=== PATIENT | female | born 1935 | race Caucasian/White ===

== ENCOUNTER 2018-03-01 15:28 | Emergency (ER) | payer OTHER ==
[~2018-03-01] VITALS: Ht 165.1 cm; Wt 59.0 kg
--- NOTE | 2018-03-01 15:40 | NUR ---
There are no ER beds available at this time. Pt was triaged and placed back in ER waiting room.
[2018-03-01] MEDS ORDERED: SIMV10TA6 PO (15:47)
[2018-03-01] MEDS ORDERED: BECL8.7A6 IH (15:47)
[2018-03-01] MEDS ORDERED: HYDR12.5 PO (15:47)
[2018-03-01] MEDS ORDERED: DIAZ5TAB4 PO (15:47)
[2018-03-01] MEDS ORDERED: TRAM50TA2 PO (15:47)
[2018-03-01] MEDS ORDERED: LOSA50TA21 PO (15:47)
[2018-03-01] MEDS ORDERED: DICL75TA5 PO (15:47)
[2018-03-01 16:08] LABS: BASOPHILS % (AUTO) 0.8 % (0.0-2.0); EOSINOPHILS # (AUTO) 0.2 K/uL (0.0-0.7); EOSINOPHILS % (AUTO) 2.8 % (0.0-7.0); HEMATOCRIT 45.6 % (31.2-41.9); HEMOGLOBIN 15.6 g/dL (10.9-14.3); LYMPHOCYTES # (AUTO) 1.7 K/uL (20.0-40.0); LYMPHOCYTES % (AUTO) 28.7 % (20.5-51.5); MEAN CORPUSCULAR HEMOGLOBIN 30.3 uug (24.7-32.8); MEAN CORPUSCULAR HGB CONC 34 g/dL (32.3-35.6); MONOCYTES # (AUTO) 0.5 K/uL (2.0-10.0); NEUTROPHILS # (AUTO) 3.5 K/uL (1.8-8.9); NEUTROPHILS % (AUTO) 59.7 % (38.5-71.5); PLATELET COUNT (AUTO) 226 K/uL (179-408); RED BLOOD CELL COUNT(AUTO) 5.13 MIL/uL (3.63-4.92); WHITE BLOOD COUNT (AUTO) 5.9 K/uL (3.8-11.8)
--- NOTE | 2018-03-01 16:13 | NUR ---
Pt out of Er fot CT.
[2018-03-01 16:21] LABS: CARBON DIOXIDE 35 mmol/L (21-32); CHLORIDE 98 mmol/L (98-107); CREATININE 0.9 mg/dL (0.6-1.3); GLUCOSE 99 mg/dL (74-106); POTASSIUM 4.5 mmol/L (3.5-5.1); UREA NITROGEN, BLOOD 17 mg/dL (7-18)
[2018-03-01 16:27] LABS: ALANINE AMINOTRANSFERASE 37 U/L (14-59); ALKALINE PHOSPHATASE 82 U/L (50-136); ASPARTATE AMINOTRANSFERASE 24 U/L (15-37); BILIRUBIN,TOTAL 0.9 mg/dL (0.2-1.0); TOTAL PROTEIN, SERUM 7.6 g/dL (6.4-8.2)
--- NOTE | 2018-03-01 18:42 | NUR ---
Patient discharged to home in stable conditon. Written and verbal after care instructions given. Patient verbalizes understanding of instructions.
[2018-03-01 18:43] VITALS: BP 155/78
== END 2018-03-01 18:45 | disposition home or self-care (01) ==
LOC: ER 15:30
DX: I10 Essential (primary) hypertension (principal); J44.9 Chronic obstructive pulmonary disease, unspecified
CPT/HCPCS: 36415; 70450; 85025; A4663

== ENCOUNTER 2021-11-05 15:41 | Inpatient (IN) | payer MEDICARE, OTHER ==
[~2021-11-05] VITALS: Ht 165.1 cm; Wt 55.6 kg
[~2021-11-05 15:41] MED LIST: BECL8.7A6 IH; DIAZ5TAB4 PO; DICL75TA5 PO; HYDR12.5 PO; LOSA50TA39 PO; SIMV10TA98 PO; TRAM50TA2 PO
[2021-11-05 16:46] LABS: HEMATOCRIT 46.7 % (31.2-41.9); MEAN CORPUSCULAR HEMOGLOBIN 30.4 uug (24.7-32.8); MEAN CORPUSCULAR VOLUME 89.6 fL (75.5-95.3); PLATELET COUNT (AUTO) 253 K/uL (179-408)
[2021-11-05 16:54] LABS: CARBON DIOXIDE 23 mmol/L (21-32); CHLORIDE 100 mmol/L (98-107); CREATININE 2.2 mg/dL (0.6-1.3); GLUCOSE 124 mg/dL (74-106); UREA NITROGEN, BLOOD 73 mg/dL (7-18)
[2021-11-05] MEDS ORDERED: SPIR50TA5 PO (17:04)
[2021-11-05] MEDS ORDERED: ROSU10TA2 PO (17:04)
[2021-11-05] MEDS ORDERED: HYDR-4209 PO (17:04)
[2021-11-05] MEDS ORDERED: POTA10CA43 PO (17:04)
[2021-11-05] MEDS ORDERED: FURO20TA4 PO (17:04)
[2021-11-05] MEDS ORDERED: DILT-32 PO (17:04)
[2021-11-05 17:08] LABS: POTASSIUM 6.3 mmol/L (3.5-5.1)
[2021-11-05 17:20] LABS: ALANINE AMINOTRANSFERASE 339 U/L (14-59); ALKALINE PHOSPHATASE 77 U/L (50-136); ASPARTATE AMINOTRANSFERASE 316 U/L (15-37); BILIRUBIN,DIRECT 0.2 mg/dL (0.0-0.2); BILIRUBIN,TOTAL 1.2 mg/dL (0.2-1.0); TOTAL PROTEIN, SERUM 8.8 g/dL (6.4-8.2)
[2021-11-05] MEDS ORDERED: SODIUM POLYSTYRENE SULFONATE 15 G/60 ML LIQUID UDC PO ONE (17:45)
[2021-11-05] MEDS ORDERED: SODIUM POLYSTYRENE SULFONATE 15 G/60 ML LIQUID UDC ONE (17:55)
--- NOTE | 2021-11-05 17:58 | NUR ---
pt unable to follow direction to swallow pankaj ga md notified.
[2021-11-05 17:59] LABS: *BILIRUBIN,URIN NEGATIVE (NEGATIVE); *BLOOD, URINE 2+ (NEGATIVE); *CLARITY,URINE CLEAR (CLEAR); *COLOR,URINE YELLOW (YELLOW); *KETONES,URINE NEGATIVE (NEGATIVE); *UROBILINOGEN,URINE 0.2 E.U./dl (NORMAL); LEUKOCYTE ESTERASE ,URINE NEGATIVE (NEGATIVE); NITRITE, URINE NEGATIVE (NEGATIVE); PH,URINE 6.5 (5.0-8.0); UGLUCOSE NEGATIVE (NEGATIVE)
[2021-11-05] MEDS ORDERED: CALCIUM CHLORIDE 1 GM/10 ML DISP.SYRIN IVP ONE ×2 (18:00→18:38)
[2021-11-05] MEDS ORDERED: IV NORMAL SALINE 1000 ML BAG IV ONE (18:00)
[2021-11-05] MEDS ORDERED: DEXTROSE 50% 50 ML DISP.SYRIN IV ONE (18:00)
[2021-11-05] MEDS ORDERED: INSULIN REGULAR, HUMAN 300 UNIT/3 ML VIAL IV ONE (18:00)
[2021-11-05] MEDS ORDERED: MAGNESIUM HYDROXIDE 30 ML LIQUID UDC PO PRN (18:15)
[2021-11-05] MEDS ORDERED: ACETAMINOPHEN 325 MG TABLET PO PRN (18:15)
[2021-11-05] MEDS ORDERED: REMEDY ESSENTIAL ZINC PASTE 113 GM TP PRN (18:15)
[2021-11-05] MEDS ORDERED: ONDANSETRON 4 MG/2 ML VIAL IV PRN (18:15)
[2021-11-05] MEDS ORDERED: INSULIN REGULAR, HUMAN 300 UNIT/3 ML VIAL ONE (18:36)
[2021-11-05] MEDS ORDERED: DEXTROSE 50% 50 ML DISP.SYRIN ONE (18:36)
[2021-11-05 19:12] LABS: BACTERIA,URINE FEW /HPF (NONE SEEN); SQUAMOUS EPITHELIAL CELL,UR FEW /HPF (NONE SEEN); WBC,URINE 0-3 /HPF (0-3)
--- NOTE | 2021-11-05 20:03 | NUR ---
pt a/o able to speak in complete sentences. denies pain.
--- NOTE | 2021-11-05 21:05 | NUR ---
spoke with yard warehouse worker, will call back regarding bed assignment
[2021-11-05] MEDS: ATORVASTATIN 20 MG TABLET PO SCH (21:13)
[2021-11-05] MEDS ORDERED: ATORVASTATIN 40 MG TABLET ONE (21:20)
--- NOTE | 2021-11-05 23:10 | NUR ---
Report given to Irma WRIGHT.
--- NOTE | 2021-11-05 23:45 | NUR ---
[facility] WR[facility] in room to accept pt.
[2021-11-06] MEDS: IV NS 1000 ML 1,000 ML IV PRN ×2 (00:37→14:14)
[2021-11-06 04:00] VITALS: BP 150/68
--- NOTE | 2021-11-06 06:01 | NUR ---
Pt admitted to Tele, SR. Denies pain or SOB. Pt is alert but very forgetful at times. IV site intact. [place] draining to gravity. Will endorse to day shift.
[2021-11-06 06:55] LABS: HEMATOCRIT 45.4 % (31.2-41.9); MEAN CORPUSCULAR HEMOGLOBIN 29.7 uug (24.7-32.8); MEAN CORPUSCULAR VOLUME 89.4 fL (75.5-95.3); PLATELET COUNT (AUTO) 226 K/uL (179-408)
[2021-11-06 07:27] LABS: CARBON DIOXIDE 27 mmol/L (21-32); CHLORIDE 105 mmol/L (98-107); CREATINE KINASE, TOTAL 3714 U/L (26-192); CREATININE 1.6 mg/dL (0.6-1.3); GLUCOSE 94 mg/dL (74-106); MAGNESIUM 2.5 mg/dL (1.8-2.4); PHOSPHOROUS 4.1 mg/dL (2.5-4.9); POTASSIUM 4.6 mmol/L (3.5-5.1); UREA NITROGEN, BLOOD 63 mg/dL (7-18)
[2021-11-06] MEDS: DILTIAZEM HCL CD 120 MG CAP.SR.24H PO SCH ×2 (08:57→16:54)
[2021-11-06] MEDS ORDERED: Medication Not On Formulary EA (Rosuvastatin Calcium (Crestor) 10 MG) PO SCH (09:00)
--- NOTE | 2021-11-06 09:30 | NUR ---
awake alert and oriented but forgetful, able to follow commands and able to take po med, kept npo as ordered, safety measures maintained
[2021-11-06 11:00] VITALS: BP 157/77
--- NOTE | 2021-11-06 11:00 | NUR ---
informed [address] [employer]IC of BP elevation- saw pt- more alert, cardiac soft diet ordered
[2021-11-06 15:15] VITALS: BP 117/62
--- NOTE | 2021-11-06 17:00 | NUR ---
daughter here and pt able to carry conversation, ate food brought from home
--- NOTE | 2021-11-06 18:43 | NUR ---
resting in bed, no distress noted, call light within rech
--- NOTE | 2021-11-06 20:13 | NUR ---
Patient in bed awake alert and forgetful .On RA. No s/s of distress noted. Iv patent and intact on Right AC with IVF running well.[place] catheter draining well with clear urine output.No hematuria. Safety measures in place.Call light with in reach. Will continue to monitor.
[2021-11-06 20:15] VITALS: BP 113/51
[2021-11-06] MEDS: ATORVASTATIN 20 MG TABLET PO SCH (20:37)
[2021-11-07] MEDS: IV NS 1000 ML 1,000 ML IV PRN ×2 (01:40→14:09)
[2021-11-07 04:18] VITALS: BP 113/61
[2021-11-07 07:12] LABS: HEMATOCRIT 38.5 % (31.2-41.9); MEAN CORPUSCULAR HEMOGLOBIN 29.7 uug (24.7-32.8); MEAN CORPUSCULAR VOLUME 89.7 fL (75.5-95.3); PLATELET COUNT (AUTO) 187 K/uL (179-408)
[2021-11-07 07:40] LABS: CREATININE 1.1 mg/dL (0.6-1.3); POTASSIUM 4.4 mmol/L (3.5-5.1)
[2021-11-07] MEDS: DILTIAZEM HCL CD 120 MG CAP.SR.24H PO SCH ×2 (08:15→16:56)
[2021-11-07 12:00] VITALS: BP 122/59
--- NOTE | 2021-11-07 14:04 | NUR ---
fc removed as ordered, tolerated well. output 700cc. will continue to monitor.
[2021-11-07 16:00] VITALS: BP 99/58
--- NOTE | 2021-11-07 18:45 | NUR ---
PATIENT REMAINED STABLE DURING THE SHIFT. DENIES PAIN/DISCOMFORT. VOIDED FREELY AFTER FC REMOVAL, CONTINENT AND WALKS WITH A WALKER WITH STANDBY ASSIST. SAFETY MEASURES MAINTAINED. KEPT CALL LIGHT WITHIN REACH. ALL NEEDS ATTENDED, DUE MEDS GIVEN. WILL ENDORSE TO THE NEXT SHIFT FOR CONTINUITY OF CARE.
--- NOTE | 2021-11-07 18:56 | NUR ---
PATIENT WAS NOTED WITH ABRASION TO THE LEFT ELBOW. PER DAUGHTER AT BEDSIDE, PATIENT ALREADY HAS IT PRIOR TO ADMISSION. WILL ENDORSE.
--- NOTE | 2021-11-07 19:25 | NUR ---
Received pt resting in bed comfortably. On room air saturating at 95%. No signs of acute distress. IV in R AC running NS 90mls/hr, tolerating. Denies any pain at this moment. L Elbow abrasion noted, picture taken. Call lights within reach/ Safety measures initiated.
[2021-11-07] MEDS: ATORVASTATIN 20 MG TABLET PO SCH (20:00)
[2021-11-07 20:56] VITALS: BP 111/53
[2021-11-08] MEDS: IV NS 1000 ML 1,000 ML IV PRN ×2 (02:41→15:53)
[2021-11-08 04:59] VITALS: BP 147/67
[2021-11-08 06:25] LABS: HEMATOCRIT 36.4 % (31.2-41.9); MEAN CORPUSCULAR HEMOGLOBIN 29.7 uug (24.7-32.8); MEAN CORPUSCULAR VOLUME 89.1 fL (75.5-95.3); PLATELET COUNT (AUTO) 172 K/uL (179-408)
[2021-11-08 06:45] LABS: BILIRUBIN,DIRECT 0.2 mg/dL (0.0-0.2); TOTAL PROTEIN, SERUM 5.6 g/dL (6.4-8.2)
--- NOTE | 2021-11-08 06:57 | NUR ---
Pt slept through out the night. Alert and oriented to name, time, place and event. On room air saturating at *. IV in R AC dislodged. IV in L hand running NS at 90 mls/hr, tolerating. Able to walk to bathroom with assistance. Denies pain or discomfort. Call lights within reach. Safety measures maintained. Will endorse to am shift.
[2021-11-08 07:03] LABS: CREATININE 0.9 mg/dL (0.6-1.3); POTASSIUM 3.7 mmol/L (3.5-5.1)
--- NOTE | 2021-11-08 07:30 | NUR ---
Alert, oriented x 3, able to verbalized needs appropriately. IVF infusing. Bed alarm on
--- NOTE | 2021-11-08 09:04 | NUR ---
PT eval done, ambulated outside of room with FWW.
[2021-11-08] MEDS: DILTIAZEM HCL CD 120 MG CAP.SR.24H PO SCH ×2 (09:32→17:36)
[2021-11-08 11:03] VITALS: BP 122/59
--- NOTE | 2021-11-08 14:38 | NUR ---
Clinical Social Work Note SW met with patient to discuss discharge plan. Patient is a 86 year old female who is alert and oriented x3. Patient presents with a withdrawn mood and congruent affect. SW asked patient about her plans for at home support when she is discharged. Patient stated that she wants to go home and her daughter lives close and will help monitor her. Patient asked SW to speak with daughter for details. SW spoke with patient's daughter, Nasim Toro [phone], to discuss patient's support at home upon discharge. Ms. Toro, patient is "very stubborn" and wants to return home. SW discussed with Ms. Toro regarding setting patient up with home health and she agreed. Ms. Toro stated that she is currently working on getting patient a caregiver, but she is not sure if patient will agree with it. Ms. Toro inquired about DME and SW e-mailed her DME companies. Plan: SW will continue to follow up with patient and Ms. Toro as needed.
[2021-11-08 15:17] VITALS: BP 104/57
[2021-11-08] MEDS: FUROSEMIDE 20 MG TABLET PO SCH (17:36)
[2021-11-08] MEDS: ENSURE ENLIVE (VAN) 240 ML LIQUID PO SCH (17:36)
[2021-11-08] MEDS: DOCUSATE SODIUM 100 MG CAPSULE PO SCH (17:36)
--- NOTE | 2021-11-08 18:14 | NUR ---
Daughter at bedside, explained DC plan/arrangements. With BLE edema, Lasix po given. Constipated, Colace po given. Call light with in reach, instructed to call. Bed alarm on
[2021-11-08 20:18] VITALS: BP 96/51
[2021-11-08] MEDS: ATORVASTATIN 20 MG TABLET PO SCH (21:06)
[2021-11-09 04:18] VITALS: BP 102/57
--- NOTE | 2021-11-09 07:02 | NUR ---
PATIENT ALERT ORIENTED, NO SOB NO CHEST PAIN, NO COMPLAIN OF PAIN, ASSISTED WITH TOILETING, CONTINENT OF BLADDER. CALL LIGHT WITHIN REACH. CONT TO MONITOR.
[2021-11-09 07:23] LABS: CREATININE 0.9 mg/dL (0.6-1.3); POTASSIUM 3.5 mmol/L (3.5-5.1)
[2021-11-09] MEDS: DOCUSATE SODIUM 100 MG CAPSULE PO SCH ×2 (08:52→16:37)
[2021-11-09] MEDS: ENSURE ENLIVE (VAN) 240 ML LIQUID PO SCH ×2 (08:55→16:37)
[2021-11-09] MEDS: FUROSEMIDE 20 MG TABLET PO SCH (08:56)
[2021-11-09] MEDS: DILTIAZEM HCL CD 120 MG CAP.SR.24H PO SCH ×2 (09:00→16:37)
[2021-11-09 12:05] VITALS: BP 114/69
[2021-11-09 16:16] VITALS: BP 106/58
[2021-11-09 16:37] VITALS: BP 106/58
--- NOTE | 2021-11-09 16:50 | NUR ---
Patient discharged from unit at 1650. Discharge packet completed and given to patient. IV site removed and ID badges removed. Patient picked up by private car by daughter.
== END 2021-11-09 16:50 | disposition home health service (06) | DRG 682 ==
LOC: ER 15:41 → TRANSITION 18:21 → UNDOADMIN 21:54 → TELE3 23:15 → MEDSURG3 11-06 17:00
PROVIDERS: ADMIT Nurse Practitioner Acute Care; ATTEND Hospitalist
DX: N17.0 Acute kidney failure with tubular necrosis (principal); G92.8 Other toxic encephalopathy; M62.82 Rhabdomyolysis; J44.9 Chronic obstructive pulmonary disease, unspecified; E87.5 Hyperkalemia; E78.5 Hyperlipidemia, unspecified; E86.0 Dehydration; R74.01 Elevation of levels of liver transaminase levels; F03.90 Unspecified dementia, unspecified severity, without behavioral disturbance, psychotic disturbance, mood disturbance, and anxiety; I10 Essential (primary) hypertension; W19.XXXA Unspecified fall, initial encounter; Y93.9 Activity, unspecified; Y92.009 Unspecified place in unspecified non-institutional (private) residence as the place of occurrence of the external cause; F09 Unspecified mental disorder due to known physiological condition; Z20.822 Contact with and (suspected) exposure to COVID-19
CPT/HCPCS: 36415; 70030-TC; 70450; 71045; 72170; 83735; 84100; 85025; 87086; 93005; 93307; 97161; A4663; A6209; C1758; G0378; J1815; J3490; J7030